=== PATIENT | female | born 1955 | race Caucasian/White ===

== ENCOUNTER → 2016-10-12 | Outpatient (CLI) | payer OTHER ==
[~2016-10-12] MED LIST: VICODIN 5/500 T1 TAB PO
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
== END | disposition home or self-care (01) ==
LOC: CMRI 14:29
DX: M25.512 Pain in left shoulder (principal)
CPT/HCPCS: 73221